=== PATIENT | female | born 1995 | race Two or more races ===

== ENCOUNTER 2018-10-07 11:04 | Emergency (ER) | payer SELFPAY, MEDICAID ==
[2018-10-07] MEDS: ACETAMINOPHEN 500 MG TAB PO (13:27)
[2018-10-07 14:25] LABS: URINE BLOOD (Dip) POC Negative (NEGATIVE); URINE GLUCOSE (Dip) POC Negative (NEGATIVE); URINE KETONES (Dip) POC Negative (NEGATIVE); URINE LEUKOCYTE EST (Dip) POC Negative (NEGATIVE); URINE NITRITE (Dip) POC Negative (NEGATIVE); URINE TOTAL PROTEIN POC Negative (NEGATIVE)
== END 2018-10-07 14:45 | disposition home or self-care (01) ==
LOC: FTE 11:04
DX: O26.891 Other specified pregnancy related conditions, first trimester (principal); K13.79 Other lesions of oral mucosa; R10.31 Right lower quadrant pain; Z3A.11 11 weeks gestation of pregnancy
CPT/HCPCS: 76801; 81003; 99284-25

== ENCOUNTER 2019-04-19 12:13 | Inpatient (IN) | payer OTHER ==
[2019-04-19] MEDS ORDERED: BUTORPHANOL 2 MG INJ IV (16:30)
[2019-04-19] MEDS ORDERED: METHYLERGONOVINE 0.2 MG INJ IM (16:30)
[2019-04-19] MEDS ORDERED: MISOPROSTOL 200 MCG TAB PR (16:30)
[2019-04-19] MEDS ORDERED: LIDOCAINE 1% (MPF) 30 ML INJ INJ (16:30)
[2019-04-19] MEDS ORDERED: CARBOPROST 250 MCG INJ IM (16:30)
[2019-04-19 16:54] LABS: ADD MAN DIFF? NO
[2019-04-19 16:55] LABS: WHITE BLOOD COUNT 9.3 10^3/ul (4.8-10.8)
[2019-04-19 16:55] LABS: BASOPHILS % 0.2 % (0.0-2.0); EOSINOPHILS # 0.1 10^3/ul (0.0-0.5); HEMATOCRIT 37.4 % (37.0-47.0); HEMOGLOBIN 12.4 g/dl (12.0-16.0); LYMPHOCYTES # 1.7 10^3/ul (0.8-2.9); LYMPHOCYTES % 17.7 % (15.0-51.0); MEAN CORPUSCULAR HEMOGLOBIN 29.4 pg (29.0-33.0); MEAN CORPUSCULAR HGB CONC 33.2 g/dl (32.0-37.0); MEAN CORPUSCULAR VOLUME 88.6 fl (82.0-101.0); MEAN PLATELET VOLUME 11.4 fl (7.4-10.4); MONOCYTE # 0.8 10^3/ul (0.3-0.9); MONOCYTES % 8.6 % (0.0-11.0); NEUTROPHIL # 6.7 10^3/ul (1.6-7.5); PLATELET COUNT 213 10^3/UL (140-415); RED BLOOD COUNT 4.22 10^6/ul (4.20-5.40); RED CELL DISTRIBUTION WIDTH 13.1 % (11.5-14.5)
[2019-04-19] MEDS: MISOPROSTOL 50 MCG CAPSULE PO ×2 (17:05→21:41)
[2019-04-19] MEDS: LACTATED RINGER'S 1,000 ML IV ×2 (17:06→23:25)
[2019-04-19 17:14] LABS: INR 0.94; PARTIAL THROMBOPLASTIN TIME 26.1 Sec (23.0-35.0); PROTIME 12.7 Sec (11.9-14.9)
[2019-04-20] MEDS ORDERED: FENTAnyl 2MCG/ML-ROPIV 0.2% 100 ML (01:43)
[2019-04-20] MEDS ORDERED: FENTAnyl 2MCG/ML-ROPIV 0.2% 100 ML BAG EPI (02:00)
[2019-04-20] MEDS ORDERED: NALOXONE (0.4 MG/ML) INJ IV (02:00)
[2019-04-20] MEDS: MISOPROSTOL 50 MCG CAPSULE PO (02:51)
[2019-04-20] MEDS: LEVOTHYROXINE 25 MCG TAB PO (06:17)
[2019-04-20] MEDS: LACTATED RINGER'S 1,000 ML IV (06:23)
[2019-04-20] MEDS: OXYTOCIN 30 UNITS/LR 500 ML IV ×2 (09:35→14:30)
[2019-04-20] MEDS ORDERED: ACETAMINOPHEN 325 MG TAB PO (11:00)
[2019-04-20] MEDS ORDERED: MAGNESIUM HYDROXIDE 30ML CUP PO (11:00)
[2019-04-20] MEDS ORDERED: CARBOPROST 250 MCG INJ IM (11:00)
[2019-04-20] MEDS ORDERED: HYDROCODONE/APAP (5/325) TAB PO (11:00)
[2019-04-20] MEDS ORDERED: METHYLERGONOVINE 0.2 MG INJ IM (11:00)
[2019-04-20] MEDS ORDERED: OXYTOCIN 30 UNITS/LR 500 ML IV (11:00)
[2019-04-20] MEDS ORDERED: MISOPROSTOL 200 MCG TAB PR (11:00)
[2019-04-20] MEDS ORDERED: DIPHENHYDRAMINE 25 MG CAP PO (11:00)
[2019-04-20] MEDS ORDERED: ZOLPIDEM 5 MG TAB PO (11:00)
[2019-04-20] MEDS: WITCH HAZEL/GLYCERIN PAD PR (14:33)
[2019-04-20] MEDS: BENZOCAINE 20% 56 ML SPRAY TOP (14:33)
[2019-04-20] MEDS: LANOLIN HPA 1 PKT TOP (14:33)
[2019-04-20] MEDS: IBUPROFEN 800 MG TAB PO (18:00)
[2019-04-20] MEDS: LACTATED RINGER'S 1,000 ML IV* (18:35)
[2019-04-20 21:55] LABS: RAPID PLASMA REAGIN NONREACTIVE (NR)
[2019-04-21] MEDS: IBUPROFEN 800 MG TAB PO ×4 (00:15→22:54)
[2019-04-21] MEDS: LACTATED RINGER'S 1,000 ML IV* (02:35)
[2019-04-21 06:48] LABS: ADD MAN DIFF? NO
[2019-04-21 06:51] LABS: BASOPHILS % 0.3 % (0.0-2.0); EOSINOPHILS # 0.2 10^3/ul (0.0-0.5); EOSINOPHILS % 1.2 % (0.0-7.0); HEMATOCRIT 35.1 % (37.0-47.0); HEMOGLOBIN 11.4 g/dl (12.0-16.0); LYMPHOCYTES # 2.8 10^3/ul (0.8-2.9); LYMPHOCYTES % 17.4 % (15.0-51.0); MEAN CORPUSCULAR HEMOGLOBIN 29.3 pg (29.0-33.0); MEAN CORPUSCULAR HGB CONC 32.5 g/dl (32.0-37.0); MEAN CORPUSCULAR VOLUME 90.2 fl (82.0-101.0); MEAN PLATELET VOLUME 11.4 fl (7.4-10.4); MONOCYTE # 1.5 10^3/ul (0.3-0.9); MONOCYTES % 9.2 % (0.0-11.0); NEUTROPHIL # 11.3 10^3/ul (1.6-7.5); NEUTROPHILS % 71.3 % (39.0-77.0); PLATELET COUNT 196 10^3/UL (140-415); RED BLOOD COUNT 3.89 10^6/ul (4.20-5.40); RED CELL DISTRIBUTION WIDTH 13.4 % (11.5-14.5)
[2019-04-21 06:51] LABS: WHITE BLOOD COUNT 15.8 10^3/ul (4.8-10.8)
[2019-04-21] MEDS: SENNA/DOCUSATE NA (8.6MG/50MG) TAB PO (09:39)
[2019-04-21] MEDS: LANOLIN HPA 1 PKT TOP (09:39)
[2019-04-21] MEDS: WITCH HAZEL/GLYCERIN PAD PR (21:40)
[2019-04-22] MEDS: IBUPROFEN 800 MG TAB PO ×3 (06:00→11:03)
[2019-04-22] MEDS: LEVOTHYROXINE 25 MCG TAB PO (06:11)
[2019-04-22] MEDS: LANOLIN HPA 1 PKT TOP (07:58)
[2019-04-22] MEDS: VARICELLA VACCINE LIVE/PF 1,350 UNIT/0.5 ML ML SC* (09:00)
[2019-04-22] MEDS: DIPHTH/TET/ACEL PERTUSS (ADULT) 0.5 ML VIAL IM* (09:00)
[2019-04-22] MEDS: MEASLES,MUMPS,RUBELLA VACCINE INJ SC* (09:00)
== END 2019-04-22 17:20 | disposition home or self-care (01) | DRG 807 ==
LOC: OBT 12:13 → L-D 12:14 → PP1 04-20 10:33 → L-D 12:16 → OBT 14:58 → L-D 14:58
PROVIDERS: Obstetrics & Gynecology
PROC: 10E0XZZ Delivery of Products of Conception, External Approach (ICD-10-PCS; principal; 2019-04-20)
PROC: 0HQ9XZZ Repair Perineum Skin, External Approach (ICD-10-PCS; 2019-04-20)
DX: O41.03X0 Oligohydramnios, third trimester, not applicable or unspecified (principal); Z37.0 Single live birth; O99.284 Endocrine, nutritional and metabolic diseases complicating childbirth; E03.9 Hypothyroidism, unspecified; O70.0 First degree perineal laceration during delivery; Z3A.39 39 weeks gestation of pregnancy
CPT/HCPCS: 62322; 76815; 76818; 85025; 85610; 85730; 86592; 86800; 86900; 86901; 90716; 99464

== ENCOUNTER 2019-04-27 22:15 | Emergency (ER) | payer OTHER ==
[2019-04-27 22:54] LABS: URINE PH (Dip) POC 8.5 (5.0-8.5)
[2019-04-27 22:54] LABS: URINE BLOOD (Dip) POC 3+ (NEGATIVE); URINE GLUCOSE (Dip) POC Negative (NEGATIVE); URINE KETONES (Dip) POC Negative (NEGATIVE); URINE LEUKOCYTE EST (Dip) POC 2+ (NEGATIVE); URINE NITRITE (Dip) POC Negative (NEGATIVE); URINE TOTAL PROTEIN POC 2+ (NEGATIVE)
[2019-04-27 23:19] LABS: ADD MAN DIFF? NO
[2019-04-27 23:27] LABS: WHITE BLOOD COUNT 13.3 10^3/ul (4.8-10.8)
[2019-04-27 23:27] LABS: BASOPHIL # 0.1 10^3/ul (0.0-0.1); BASOPHILS % 0.5 % (0.0-2.0); EOSINOPHILS # 0.4 10^3/ul (0.0-0.5); EOSINOPHILS % 3.2 % (0.0-7.0); HEMATOCRIT 35.3 % (37.0-47.0); HEMOGLOBIN 11.6 g/dl (12.0-16.0); LYMPHOCYTES # 1.7 10^3/ul (0.8-2.9); LYMPHOCYTES % 12.8 % (15.0-51.0); MEAN CORPUSCULAR HEMOGLOBIN 29.1 pg (29.0-33.0); MEAN CORPUSCULAR HGB CONC 32.9 g/dl (32.0-37.0); MEAN CORPUSCULAR VOLUME 88.7 fl (82.0-101.0); MEAN PLATELET VOLUME 9.9 fl (7.4-10.4); MONOCYTE # 1.1 10^3/ul (0.3-0.9); PLATELET COUNT 334 10^3/UL (140-415); RED BLOOD COUNT 3.98 10^6/ul (4.20-5.40); RED CELL DISTRIBUTION WIDTH 12.7 % (11.5-14.5)
[2019-04-27 23:34] LABS: ADD UMIC YES; UR ASCORBIC ACID NEGATIVE (NEGATIVE); UR BACTERIA FEW /HPF (NONE SEEN); UR BILIRUBIN (Dip) NEGATIVE (NEGATIVE); UR BLOOD (Dip) 2+ mg/dL (NEGATIVE); UR CLARITY CLOUDY (CLEAR); UR COLOR YELLOW (YELLOW); UR GLUCOSE (Dip) NEGATIVE (NEGATIVE); UR KETONES (Dip) NEGATIVE (NEGATIVE); UR LEUKOCYTE ESTERASE (Dip) 3+ Leu/ul (NEGATIVE); UR MUCUS FEW /HPF (NONE SEEN); UR NITRITE (Dip) NEGATIVE (NEGATIVE); UR RBC 163 /HPF (0-5); UR SPECIFIC GRAVITY (Dip) 1.021 (1.003-1.030); UR SQUAMOUS EPITHELIAL CELL FEW /HPF (FEW); UR TOTAL PROTEIN (Dip) 1+ mg/dl (NEGATIVE); UR UROBILINOGEN (Dip) NEGATIVE (NEGATIVE); UR WBC > 182 /HPF (0-5)
[2019-04-27 23:42] LABS: ALANINE AMINOTRANSFERASE 23 IU/L (13-69); ALBUMIN 3.9 g/dl (3.3-4.9); ALBUMIN/GLOBULIN RATIO 1.25; ALKALINE PHOSPHATASE 108 IU/L (42-121); ANION GAP 10 (5-13); ASPARTATE AMINO TRANSFERASE 28 IU/L (15-46); BILIRUBIN,INDIRECT 0.4 mg/dl (0-1.1); BILIRUBIN,TOTAL 0.4 mg/dl (0.2-1.3); BLOOD UREA NITROGEN 10 mg/dl (7-20); CALCIUM 9.6 mg/dl (8.4-10.2); CARBON DIOXIDE 24 mmol/L (21-31); CHLORIDE 105 mmol/L (97-110); CREATININE 0.71 mg/dl (0.44-1.00); Estimated GFR > 60 mL/min (>60); GLUCOSE 101 mg/dl (70-220); SODIUM 139 mmol/L (135-144)
[2019-04-28] MEDS: CEFTRIAXONE 500 MG INJ IM (00:18)
== END 2019-04-28 00:39 | disposition home or self-care (01) ==
LOC: FTE 04-28 00:39
DX: O86.20 Urinary tract infection following delivery, unspecified (principal); B96.89 Other specified bacterial agents as the cause of diseases classified elsewhere
CPT/HCPCS: 36415; 80053; 81001; 81003; 85025; 96372; 99284-25

== ENCOUNTER 2019-05-22 09:27 | Emergency (ER) | payer OTHER ==
[2019-05-22 11:22] LABS: ADD UMIC YES; UR ASCORBIC ACID NEGATIVE (NEGATIVE); UR BACTERIA FEW /HPF (NONE SEEN); UR BILIRUBIN (Dip) NEGATIVE (NEGATIVE); UR BLOOD (Dip) 1+ mg/dL (NEGATIVE); UR CLARITY CLEAR (CLEAR); UR COLOR YELLOW (YELLOW); UR GLUCOSE (Dip) NEGATIVE (NEGATIVE); UR KETONES (Dip) NEGATIVE (NEGATIVE); UR LEUKOCYTE ESTERASE (Dip) 3+ Leu/ul (NEGATIVE); UR NITRITE (Dip) NEGATIVE (NEGATIVE); UR NONSQUAMOUS EPITHELIAL CELL 1 /HPF (NONE SEEN); UR RBC 2 /HPF (0-5); UR SPECIFIC GRAVITY (Dip) 1.015 (1.003-1.030); UR SQUAMOUS EPITHELIAL CELL FEW /HPF (FEW); UR TOTAL PROTEIN (Dip) NEGATIVE (NEGATIVE); UR UROBILINOGEN (Dip) NEGATIVE (NEGATIVE); UR WBC 40 /HPF (0-5)
== END 2019-05-22 12:50 | disposition home or self-care (01) ==
LOC: FTE 12:50
DX: R30.0 Dysuria (principal)
CPT/HCPCS: 81001; 87086; 87220; 87591; 99283